=== PATIENT | female | born 1960 ===

== ENCOUNTER 2017-06-27 07:20 | Day surgery (SDC) | payer MEDICAID ==
[2017-06-15 10:22] VITALS: BMI 27.1
[2017-06-27 07:41] VITALS: O2SAT 98
[2017-06-27] MEDS ORDERED: Insulin Regular 1 UNITS/0.01 ML ML SC ONE ×2 (08:15→08:30)
[2017-06-27] MEDS ORDERED: Sodium Chloride 0.9% 1,000 ML IV SCH (08:45)
[2017-06-27] MEDS ORDERED: Insulin Regular 1 UNITS/0.01 ML ML IV ONE ×2 (09:05→09:16)
[2017-06-27] MEDS ORDERED: Propofol 10 mg/ml Inj (20 ML) ONE ×2 (09:46→10:13)
[2017-06-27 11:05] VITALS: RESP 16
[2017-06-27 11:25] VITALS: BP 137/73; PULSE 91; TEMP 97.6
== END 2017-06-27 12:03 | disposition home or self-care (01) ==
LOC: ENDO 07:20
PROVIDERS: ATTEND Internal Medicine
DX: D12.4 Benign neoplasm of descending colon (principal); K64.8 Other hemorrhoids; I10 Essential (primary) hypertension; E11.9 Type 2 diabetes mellitus without complications; F41.9 Anxiety disorder, unspecified; E78.00 Pure hypercholesterolemia, unspecified; Z79.4 Long term (current) use of insulin; Z12.11 Encounter for screening for malignant neoplasm of colon
CPT/HCPCS: 45380; 82948; 88305; J2704; J7040